=== PATIENT | female | born 1965 | race Caucasian/White ===

== ENCOUNTER 2019-10-29 16:23 | Emergency (ER) | payer MEDICARE, MEDICAID ==
[~2019-10-29] VITALS: Ht 165.1 cm; Wt 52.3 kg
[2019-10-29] MEDS ORDERED: ACET-784 PO (16:45)
[2019-10-29] MEDS ORDERED: TRAZ150 PO (16:45)
[2019-10-29] MEDS ORDERED: PROZ10 PO (16:45)
[2019-10-29] MEDS ORDERED: KETOROLAC TROMETHAMINE 30 MG/ML VIAL IM ONE (19:00)
[2019-10-29] MEDS ORDERED: ACETAMINOPHEN 500 MG TABLET PO ONE (19:15)
[2019-10-29] MEDS ORDERED: OxyCODONE HCL 10 MG ER TABLET PO ONE (21:30)
[2019-10-29 21:50] VITALS: BP 102/75
== END 2019-10-29 21:53 | disposition home or self-care (01) ==
LOC: EMS 16:25
DX: S32.018A Other fracture of first lumbar vertebra, initial encounter for closed fracture (principal); J44.9 Chronic obstructive pulmonary disease, unspecified; F17.210 Nicotine dependence, cigarettes, uncomplicated; Z98.890 Other specified postprocedural states; Z88.0 Allergy status to penicillin; Z79.899 Other long term (current) drug therapy; W01.0XXA Fall on same level from slipping, tripping and stumbling without subsequent striking against object, initial encounter; Y93.89 Activity, other specified; Y92.89 Other specified places as the place of occurrence of the external cause; Y99.8 Other external cause status
CPT/HCPCS: 71045; 72100; 72131; 99284; J1885

== ENCOUNTER 2019-10-30 09:29 | Emergency (ER) | payer MEDICARE, MEDICAID ==
[~2019-10-30] VITALS: Ht 165.1 cm; Wt 52.3 kg
[~2019-10-30 09:29] MED LIST: ACET-784 PO; PROZ10 PO; TRAZ150 PO
[2019-10-30 09:31] VITALS: BP 119/79
== END 2019-10-30 11:02 | disposition home or self-care (01) ==
LOC: EMS 09:31
DX: M48.56XA Collapsed vertebra, not elsewhere classified, lumbar region, initial encounter for fracture (principal); J44.9 Chronic obstructive pulmonary disease, unspecified; F17.210 Nicotine dependence, cigarettes, uncomplicated; Z76.0 Encounter for issue of repeat prescription; Z88.0 Allergy status to penicillin